=== PATIENT | female | born 1950 | race Caucasian/White ===

== ENCOUNTER → 2022-01-05 | Outpatient (CLI) | payer MEDICARE, OTHER ==
--- NOTE | 2022-01-05 15:31 | Diagnostic Imaging Report ---
HISTORY: Constipation TECHNIQUE: Frontal view of the abdomen. COMPARISON: None FINDINGS: No distended loops of small bowel are seen. There is no large collection of free air. Overall, the stool burden appears low to moderate. There is internal fixation of an old right femur fracture. There does appear to be deformity of the left pubis from an old trauma. IMPRESSION: 1. Low to moderate stool burden in the colon. No findings of bowel obstruction. Dictated by: Dictated on workstation # [id number]
== END ==
LOC: RAD FS 10:46
PROVIDERS: ATTEND Family Medicine
DX: K59.03 Drug induced constipation (principal); Z68.1 Body mass index [BMI] 19.9 or less, adult
CPT/HCPCS: 74018